=== PATIENT | female | born 1975 | race African-American/Black ===

== ENCOUNTER 2018-05-30 18:43 | Emergency (ER) | payer OTHER ==
[~2018-05-30] VITALS: Ht 154.9 cm; Wt 99.9 kg
[2018-05-30 18:55] VITALS: Ht 154.9 cm; Wt 99.9 kg
[2018-05-30 19:36] LABS: BASOPHIL % 1.2 % (0-2); PLATELET COUNT 312 x10^3mcL (130-400); RED CELL DISTRIBUTION WIDTH 13.4 % (11.5-14.5)
[2018-05-30 19:38] LABS: UA SPECIFIC GRAVITY 1.025 (1.005-1.035); microscopic required? YES; urine erythrocyte 3+ (NEGATIVE)
[2018-05-30 19:44] LABS: CALCIUM 8.9 mg/dL (8.5-10.1); CARBON DIOXIDE 27.3 mmol/L (21-32); CHLORIDE SERUM 107 mmol/L (98-107); CREATININE SERUM 0.7 mg/dL (0.6-1.0); GFR1 > 60 mL/min; GLUCOSE SERUM 99 mg/dL (74-106); SODIUM SERUM 140 mmol/L (136-145)
[2018-05-30 19:49] LABS: ALBUMIN 3.9 g/dL (3.4-5.0); ALKALINE PHOSPHATASE 87 U/L (46-116); ALT/SGPT 18 U/L (14-59); AST/SGOT 10 U/L (15-37); BILIRUBIN TOTAL 0.28 mg/dL (0.20-1.00); TOTAL PROTEIN, SERUM 7.9 g/dL (6.4-8.2)
[2018-05-30 21:03] VITALS: BP 122/74
== END 2018-05-30 21:03 | disposition home or self-care (01) ==
LOC: ED 18:43
PROVIDERS: Emergency Medicine
DX: N30.91 Cystitis, unspecified with hematuria (principal); Z90.710 Acquired absence of both cervix and uterus; Z98.890 Other specified postprocedural states
CPT/HCPCS: J0696; J1885

== ENCOUNTER 2019-02-01 19:35 | Emergency (ER) | payer OTHER ==
[~2019-02-01] VITALS: Ht 157.5 cm; Wt 99.8 kg
[2019-02-01 19:37] VITALS: Ht 157.5 cm; Wt 99.8 kg
[2019-02-01 20:59] VITALS: BP 118/70
== END 2019-02-01 20:59 | disposition home or self-care (01) ==
LOC: ED 19:35
DX: H61.22 Impacted cerumen, left ear (principal)